=== PATIENT | female | born 1985 | race Caucasian/White ===

== ENCOUNTER 2016-12-03 16:53 | Emergency (ER) | payer BC ==
--- NOTE | 2016-12-03 17:34 | EDDOCDS ---
Nurse's Notes [facility] Name: Annabella Magallanes Age: 31 yrs Sex: Female : 1985 Arrival Date: 12/03/2016 Time: 16:53 Bed I6 / 28 Private MD: Diagnosis: Chest pain, unspecified Presentation: 12/03 17:01 Presenting complaint: Patient states: ache in center of chest and hypertension since [facility] 1200. denies SOB, or sweats. Aspirin was not taken prior to arrival. Adult Sepsis Screening: The patient does not have new or worsening altered mentation. Patient's respiratory rate is less than 22. Systolic blood pressure is greater than 100. Patient has a qSOFA score of 0- Negative Sepsis Screen. Suicide/Homicide risk assessment- the patient denies having any suicidal and/or homicidal ideations and does not present with any other emotional, behavioral or mental health complaints. 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 Transition of care: patient was not received from another setting of care. 17:01 Acuity: ANTOINE Level 3 [facility] 17:01 Method Of Arrival: Walkin/Carried/Asstd [facility] Triage Assessment: 17:05 General: Appears in no apparent distress, Behavior is appropriate for age. Pain: [facility] Location: mid-sternal area Pain currently is 2 out of 10 on a pain scale. Pt Declines HIV testing. Neurological: Level of Consciousness is awake, alert, Oriented to person, place, time. Cardiovascular: Capillary refill < 3 seconds in bilateral fingers Chest pain is described as Pain is 2 out of 10 on a pain scale. quality is pressure, radiates Does not radiate. episodes are continuous began 1200 today. Respiratory: Airway is patent Respiratory effort is even, unlabored. Derm: Skin is pink, warm & dry. 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 Ventolin HFA 90 mcg/actuation Nebulizer HFAA 2 puffs every 4 hours as needed (Last dose: Unknown) - PMHx: Asthma; - PSHx: Cholecystectomy; - Social history: Smoking status: Patient uses tobacco products, light tobacco smoker. No barriers to communication noted, The patient speaks fluent Macedonian. - Family history: Not pertinent. - : The pt / caregiver states he / she is not on anticoagulants. Home medication list is obtained from the patient. - Exposure Risk Screening:: None identified. Screenin:31 Screening information is obtained from the patient. Fall risk: No risks identified. dls Assistance ADL's: requires no assistance with activities of daily living. Abuse/DV Screen: The patient / caregiver reports he/she is: not in a situation that causes fear, pain or injury. Nutritional screening: No deficits noted. Advance Directives: Currently, there is no health care proxy. There is no active DNR order. There is no living will. There is no Power of Project Analyst. home support is adequate. Assessment: 17:30 General: Appears in no apparent distress, obese, well developed, well nourished, dls Behavior is cooperative. Neurological: No deficits noted. EENT: No deficits noted. Cardiovascular: Rhythm is sinus rhythm No ectopy. Respiratory: No deficits noted. GI: No deficits noted. : No deficits noted. Derm: No deficits noted. Musculoskeletal: No deficits noted. Vital Signs: 16:55 BP 163 / 93; Pulse 97; Resp 16; Temp 96.7(O); Pulse Ox 99% on R/A; Weight 127.01 kg lr2 (R); Height 5 ft. 4 in. (162.56 cm) (R); Pain 2/10; 17:05 BP 144 / 96 RA Sitting (man/lg); kpj 17:29 BP 124 / 82; Pulse 93; Resp 20; Temp 97.4; Pulse Ox 95% on R/A; dls 16:55 Body Mass Index 48.06 (127.01 kg, 162.56 cm) lr2 Vitals: 16:53 RN notified that patient meets Red Flag criteria. lr2 16:55 Log In Time: December 03, 2016 at 16:53. lr2 ED Course: 16:55 Patient visited by Radha Johnston. lr2 16:55 Patient moved to Waiting lr2 16:57 Patient moved to Pre RCE lr2 17:04 Triage Initiated kpj 17:10 EKG done. (by ED staff). Reviewed by Hamlet Pulido MD. kpj 17:13 Patient moved to I [facility] 17:18 [facility]ik Graham [facility] 17:19 Malick Calzada MD is Attending Physician. cc10 17:19 Patient visited by Karthik Graham PA-C. cc10 17:19 Patient visited by Karthik Graham PA-C. cc10 17:31 The patient / caregiver is instructed regarding the plan of care and ED course. Cardiac dls monitoring not applicable on this patient. Property :Personal belongings accompany Pt. 17:31 No IV's were initiated during this patient's visit. No procedures done that require dls assistance. Order Results: There are currently no results for this order. Outcome: 17:24 Discharge ordered by Provider. cc10 17:33 Patient left the ED. dls Signatures: Keyla Oliveira RN RN Marissa Rangel RN RN dls Coniski, Colin, PA-C PA-C ccRadha Rodriguez lr2 MTDD
--- NOTE | 2016-12-03 17:34 | EDDOCDS ---
Physician Documentation [facility] Name: Annabella Magallanes Age: 31 yrs Sex: Female : 1985 Arrival Date: 12/03/2016 Time: 16:53 Bed I6 / 28 Private MD: Disposition: 12/03/16 17:24 Discharged to Home/Self Care. Impression: Chest pain, unspecified. - Condition is Stable. - Discharge Instructions: Nonspecific Chest Pain. - Medication Reconciliation, Work Release Form - 1 day form. - Follow up: Private Physician; When: Call to arrange an appointment; Reason: Wound/Symptom Recheck, Recheck today's complaints, Worsening of conditions, Continuance of care. - Problem is an acute exacerbation. - Symptoms have improved. Historical: - Allergies: Morphine (Unknown); PENICILLINS (Rash); - Home Meds: 1. Ventolin HFA 90 mcg/actuation Nebulizer HFAA 2 puffs every 4 hours as needed (Last dose: Unknown) - PMHx: Asthma; - PSHx: Cholecystectomy; - Social history: Smoking status: Patient uses tobacco products, light tobacco smoker. No barriers to communication noted, The patient speaks fluent Surinamese. - Family history: Not pertinent. - : The pt / caregiver states he / she is not on anticoagulants. Home medication list is obtained from the patient. - Exposure Risk Screening:: None identified. 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 4 in. (162.56 cm) (R); Pain 2/10; 17:05 BP 144 / 96 RA Sitting (man/lg); kpj 17:29 BP 124 / 82; Pulse 93; Resp 20; Temp 97.4; Pulse Ox 95% on R/A; dls 16:55 Body Mass Index 48.06 (127.01 kg, 162.56 cm) lr2 MDM: 17:01 ECG WITH READING ER PHYS+CARDIAG ordered. EDMS 17:31 Financial registration complete. gjb Signatures: Dispatcher [employer] EDMS Keyla Oliveira, RN RN kpj Marissa West RN RN dls Karthik Graham, PA-C PA-C cc10 Magali Lino MTDD
--- NOTE | 2016-12-05 09:58 | ECGEPIP ---
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
--- NOTE | 2016-12-05 18:33 | EDDOCDS ---
Physician Documentation [facility] Name: Annabella Magallanes Age: 31 yrs Sex: Female : 1985 Arrival Date: 12/03/2016 Time: 16:53 Bed I6 / 28 Private MD: Disposition: 12/03/16 17:24 Discharged to Home/Self Care. Impression: Chest pain, unspecified. - Condition is Stable. - Discharge Instructions: Nonspecific Chest Pain. - Medication Reconciliation, Work Release Form - 1 day form. - Follow up: Private Physician; When: Call to arrange an appointment; Reason: Wound/Symptom Recheck, Recheck today's complaints, Worsening of conditions, Continuance of care. - Problem is an acute exacerbation. - Symptoms have improved. Historical: - Allergies: Morphine (Unknown); PENICILLINS (Rash); - Home Meds: 1. Ventolin HFA 90 mcg/actuation Nebulizer HFAA 2 puffs every 4 hours as needed (Last dose: Unknown) - PMHx: Asthma; - PSHx: Cholecystectomy; - Social history: Smoking status: Patient uses tobacco products, light tobacco smoker. No barriers to communication noted, The patient speaks fluent Romanian. - Family history: Not pertinent. - : The pt / caregiver states he / she is not on anticoagulants. Home medication list is obtained from the patient. - Exposure Risk Screening:: None identified. 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 4 in. (162.56 cm) (R); Pain 2/10; 17:05 BP 144 / 96 RA Sitting (man/lg); kpj 17:29 BP 124 / 82; Pulse 93; Resp 20; Temp 97.4; Pulse Ox 95% on R/A; dls 16:55 Body Mass Index 48.06 (127.01 kg, 162.56 cm) lr2 MDM: 17:01 ECG WITH READING ER PHYS+CARDIAG ordered. EDMS 17:31 Financial registration complete. tammy 18:06 [facility] Payment Agreement was scanned into MED[employer] and attached to record. tammy Signatures: Dispatcher [employer] Keyla Verdugo RN RN kpj Scott, Debra, RN RN dls Coniski, Colin, PA-C PA-C cc10 Beck, Gabriela gjb The chart was reviewed and I authenticate all verbal orders and agree with the evaluation and treatment provided.Attachments: 18:06 [facility] Payment Agreement tammy Chart Complete MTDD
--- NOTE | 2016-12-05 18:33 | EDDOCDS ---
Nurse's Notes [facility] Name: Reba Magallanes Age: 31 yrs Sex: Female : 1985 Arrival Date: 12/03/2016 Time: 16:53 Bed I6 / 28 Private MD: Diagnosis: Chest pain, unspecified Presentation: 12/03 17:01 Presenting complaint: Patient states: ache in center of chest and hypertension since [facility] 1200. denies SOB, or sweats. Aspirin was not taken prior to arrival. Adult Sepsis Screening: The patient does not have new or worsening altered mentation. Patient's respiratory rate is less than 22. Systolic blood pressure is greater than 100. Patient has a qSOFA score of 0- Negative Sepsis Screen. Suicide/Homicide risk assessment- the patient denies having any suicidal and/or homicidal ideations and does not present with any other emotional, behavioral or mental health complaints. 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 Transition of care: patient was not received from another setting of care. 17:01 Acuity: ANTOINE Level 3 [facility] 17:01 Method Of Arrival: Walkin/Carried/Asstd [facility] Triage Assessment: 17:05 General: Appears in no apparent distress, Behavior is appropriate for age. Pain: [facility] Location: mid-sternal area Pain currently is 2 out of 10 on a pain scale. Pt Declines HIV testing. Neurological: Level of Consciousness is awake, alert, Oriented to person, place, time. Cardiovascular: Capillary refill < 3 seconds in bilateral fingers Chest pain is described as Pain is 2 out of 10 on a pain scale. quality is pressure, radiates Does not radiate. episodes are continuous began 1200 today. Respiratory: Airway is patent Respiratory effort is even, unlabored. Derm: Skin is pink, warm & dry. 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 Ventolin HFA 90 mcg/actuation Nebulizer HFAA 2 puffs every 4 hours as needed (Last dose: Unknown) - PMHx: Asthma; - PSHx: Cholecystectomy; - Social history: Smoking status: Patient uses tobacco products, light tobacco smoker. No barriers to communication noted, The patient speaks fluent Czech. - Family history: Not pertinent. - : The pt / caregiver states he / she is not on anticoagulants. Home medication list is obtained from the patient. - Exposure Risk Screening:: None identified. Screenin:31 Screening information is obtained from the patient. Fall risk: No risks identified. dls Assistance ADL's: requires no assistance with activities of daily living. Abuse/DV Screen: The patient / caregiver reports he/she is: not in a situation that causes fear, pain or injury. Nutritional screening: No deficits noted. Advance Directives: Currently, there is no health care proxy. There is no active DNR order. There is no living will. There is no Power of Admission Nurse. home support is adequate. Assessment: 17:30 General: Appears in no apparent distress, obese, well developed, well nourished, dls Behavior is cooperative. Neurological: No deficits noted. EENT: No deficits noted. Cardiovascular: Rhythm is sinus rhythm No ectopy. Respiratory: No deficits noted. GI: No deficits noted. : No deficits noted. Derm: No deficits noted. Musculoskeletal: No deficits noted. Vital Signs: 16:55 BP 163 / 93; Pulse 97; Resp 16; Temp 96.7(O); Pulse Ox 99% on R/A; Weight 127.01 kg lr2 (R); Height 5 ft. 4 in. (162.56 cm) (R); Pain 2/10; 17:05 BP 144 / 96 RA Sitting (man/lg); kpj 17:29 BP 124 / 82; Pulse 93; Resp 20; Temp 97.4; Pulse Ox 95% on R/A; dls 16:55 Body Mass Index 48.06 (127.01 kg, 162.56 cm) lr2 Vitals: 16:53 RN notified that patient meets Red Flag criteria. lr2 16:55 Log In Time: December 03, 2016 at 16:53. lr2 ED Course: 16:55 Patient visited by Radha Johnston. lr2 16:55 Patient moved to Waiting lr2 16:57 Patient moved to Pre RCE lr2 17:04 Triage Initiated kpj 17:10 EKG done. (by ED staff). Reviewed by Hamlet Pulido MD. kpj 17:13 Patient moved to I [facility] 17:18 Karthik Graham [facility]C [facility] 17:19 Willam Calzada MD is Attending Physician. cc10 17:19 Patient visited by Karthik Graham PA-C. cc10 17:19 Patient visited by Karthik Graham PA-C. cc10 17:31 The patient / caregiver is instructed regarding the plan of care and ED course. Cardiac dls monitoring not applicable on this patient. Property :Personal belongings accompany Pt. 17:31 No IV's were initiated during this patient's visit. No procedures done that require dls assistance. 18:06 [facility] Payment Agreement was scanned into Dials and attached to record. gjb 12/05 10:05 EKG-ADULT Returned. 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 cc10 17:33 Patient left the ED. dls Signatures: Dispatcher [employer] EDNM Keyla Oliveira RN RN kpj Scott, Debra, RN RN dls Coniski, Colin, PA-C PA-C cc Magali Lino Laura lr2 Chart Complete MTDD
--- NOTE | 2016-12-05 18:33 | EDDOCDS ---
Physician Documentation [facility] Name: Annabella Magallanes Age: 31 yrs Sex: Female : 1985 Arrival Date: 12/03/2016 Time: 16:53 Bed I6 / 28 Private MD: Disposition: 12/03/16 17:24 Discharged to Home/Self Care. Impression: Chest pain, unspecified. - Condition is Stable. - Discharge Instructions: Nonspecific Chest Pain. - Medication Reconciliation, Work Release Form - 1 day form. - Follow up: Private Physician; When: Call to arrange an appointment; Reason: Wound/Symptom Recheck, Recheck today's complaints, Worsening of conditions, Continuance of care. - Problem is an acute exacerbation. - Symptoms have improved. Historical: - Allergies: Morphine (Unknown); PENICILLINS (Rash); - Home Meds: 1. Ventolin HFA 90 mcg/actuation Nebulizer HFAA 2 puffs every 4 hours as needed (Last dose: Unknown) - PMHx: Asthma; - PSHx: Cholecystectomy; - Social history: Smoking status: Patient uses tobacco products, light tobacco smoker. No barriers to communication noted, The patient speaks fluent Taiwanese. - Family history: Not pertinent. - : The pt / caregiver states he / she is not on anticoagulants. Home medication list is obtained from the patient. - Exposure Risk Screening:: None identified. 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 4 in. (162.56 cm) (R); Pain 2/10; 17:05 BP 144 / 96 RA Sitting (man/lg); kpj 17:29 BP 124 / 82; Pulse 93; Resp 20; Temp 97.4; Pulse Ox 95% on R/A; dls 16:55 Body Mass Index 48.06 (127.01 kg, 162.56 cm) lr2 MDM: 17:01 ECG WITH READING ER PHYS+CARDIAG ordered. EDMS 17:31 Financial registration complete. tammy 18:06 [facility] Payment Agreement was scanned into MEDHOST and attached to record. tammy Signatures: Dispatcher [employer] Keyla Verdugo RN RN kpj Scott, Debra, RN RN dls Coniski, Colin, PA-C PA-C cc10 Beck, Gabriela gjb The chart was reviewed and I authenticate all verbal orders and agree with the evaluation and treatment provided.Attachments: 18:06 [facility] Payment Agreement tammy Chart Complete MTDD
== END 2016-12-03 17:33 | disposition home or self-care (01) ==
LOC: M ED 16:53
DX: R07.89 Other chest pain (principal); J45.909 Unspecified asthma, uncomplicated; F17.210 Nicotine dependence, cigarettes, uncomplicated; Z88.0 Allergy status to penicillin; Z88.5 Allergy status to narcotic agent

== ENCOUNTER → 2016-12-31 | Outpatient (REF) | payer BC | LOC: M LAB REF 17:14 | PROVIDERS: ATTEND Physician Assistant Medical | DX: N39.0 Urinary tract infection, site not specified (principal) ==

== ENCOUNTER → 2017-04-30 | Outpatient (CLI) | payer BC ==
[2017-04-30 17:59] LABS: ANION GAP 6 MEQ/L (8-16); BLOOD UREA NITROGEN 12 MG/DL (7-18); CARBON DIOXIDE LEVEL 28 MEQ/L (21-32); CHLORIDE LEVEL 106 MEQ/L (98-107); CREATININE FOR GFR 0.74 MG/DL (0.55-1.02); GLOMERULAR FILTRATION RATE > 60.0 (>60); GLUCOSE, FASTING 84 MG/DL (70-105); POTASSIUM SERUM 4.4 MEQ/L (3.5-5.1); SODIUM LEVEL 140 MEQ/L (136-145)
== END ==
LOC: M WUC 12:12
PROVIDERS: ATTEND Physician Assistant
DX: R35.0 Frequency of micturition (principal)

== ENCOUNTER → 2018-02-13 | Outpatient (CLI) | payer BC | LOC: M RAD 15:08 | DX: R22.1 Localized swelling, mass and lump, neck (principal) | CPT/HCPCS: 76536 ==

== ENCOUNTER → 2021-09-12 | Outpatient (REF) | payer BC ==
[2021-09-12 19:53] LABS: APPEARANCE, URINE CLOUDY (CLEAR); BACTERIA, URINE AUTO NEGATIVE (NEGATIVE); BILIRUBIN, URINE AUTO NEGATIVE (NEGATIVE); BLOOD, URINE BLOOD NEGATIVE (NEGATIVE); COLOR, URINE YELLOW (YELLOW); GLUCOSE, URINE (UA) AUTO NEGATIVE (NEGATIVE); KETONE, URINE AUTO TRACE mg/dL (NEGATIVE); LEUKOCYTE ESTERASE, URINE AUTO NEGATIVE (NEGATIVE); MUCUS, URINE SMALL (NEGATIVE); NITRITE, URINE AUTO NEGATIVE (NEGATIVE); PROTEIN, URINE AUTO NEGATIVE (NEGATIVE); RBC, URINE AUTO 2 /HPF (0-3); SPECIFIC GRAVITY URINE AUTO 1.024 (1.002-1.035); SQUAMOUS EPITHELIAL CELL UR AU 8 /HPF (0-6); WBC, URINE AUTO 2 /HPF (0-3)
== END ==
LOC: M LAB REF 19:32
PROVIDERS: ATTEND Physician Assistant Medical
DX: R30.0 Dysuria (principal)

== ENCOUNTER → 2021-09-14 | Outpatient (CLI) | payer BC ==
[2021-09-14 16:18] LABS: BASO # 0.1 10^3/uL (0.0-0.2); BASO % 0.7 % (0.0-1.0); EOS # 0.2 10^3/uL (0.0-0.5); EOS % 2.1 % (0.0-3.0); HEMOGLOBIN 14.9 g/dl (12.0-15.5); LYMPH # 3.5 10^3/uL (1.5-5.0); LYMPH % 35.6 % (24.0-44.0); MEAN CORPUSCULAR HEMOGLOBIN 30.8 pg (27.0-33.0); MEAN CORPUSCULAR HGB CONC 32.4 g/dl (32.0-36.5); MEAN CORPUSCULAR VOLUME 95.2 fl (80.0-96.0); MONO # 0.7 10^3/uL (0.0-0.8); MONO % 7.1 % (2.0-8.0); NEUTROPHILS # 5.2 10^3/uL (1.5-8.5); NEUTROPHILS % 53.3 % (36.0-66.0); PLATELET COUNT, AUTOMATED 377 10^3/uL (150-450); RED BLOOD COUNT 4.83 10^6/uL (4.00-5.40); WHITE BLOOD COUNT 9.8 10^3/uL (4.0-10.0)
[2021-09-14 16:29] LABS: HEMOGLOBIN A1c 6.6 %
[2021-09-14 16:35] LABS: ALBUMIN 3.6 GM/DL (3.2-5.2); ALT/SGPT 44 U/L (12-78); BILIRUBIN,TOTAL 0.3 MG/DL (0.2-1.0); BLOOD UREA NITROGEN 13 MG/DL (7-18); CALCIUM LEVEL 9.7 MG/DL (8.5-10.1); CARBON DIOXIDE LEVEL 30 MEQ/L (21-32); CHLORIDE LEVEL 104 MEQ/L (98-107); CHOLESTEROL LEVEL 248 MG/DL (<200); CHOLESTEROL RISK RATIO 8.266 (<5); CREATININE FOR GFR 0.71 MG/DL (0.55-1.30); GLOMERULAR FILTRATION RATE > 60.0 (>60); GLUCOSE, FASTING 96 MG/DL (70-100); HDL CHOLESTEROL 30 MG/DL (>40); NON-HDL-C 218 MG/DL; POTASSIUM SERUM 4.8 MEQ/L (3.5-5.1); SODIUM LEVEL 139 MEQ/L (136-145); TOTAL PROTEIN 7.3 GM/DL (6.4-8.2); TRIGLYCERIDES LEVEL 452 MG/DL (<150)
== END ==
LOC: M WUC 11:14
DX: E11.9 Type 2 diabetes mellitus without complications (principal)

== ENCOUNTER → 2022-07-13 | Outpatient (REF) | payer BC ==
[2022-07-13 22:43] LABS: APPEARANCE, URINE MANUAL HAZY (CLEAR); COLOR, URINE MANUAL YELLOW (YELLOW); PROTEIN, URINE MANUAL NEGATIVE (NEGATIVE); SPECIFIC GRAVITY,URINE MANUAL 1.015 (1.002-1.035)
[2022-07-13 22:44] LABS: BILIRUBIN, URINE MANUAL NEGATIVE (NEGATIVE); BLOOD URINE MANUAL POSITIVE (NEGATIVE); GLUCOSE, URINE (UA) MANUAL 4+(1000 MG/DL) mg/dL (NEGATIVE); KETONE, URINE MANUAL 1+ mg/dL (NEGATIVE); LEUKOCYTE ESTERASE, URINE MAN POSITIVE (NEGATIVE); NITRITE, URINE MANUAL NEGATIVE (NEGATIVE); UROBILINOGEN, URINE MANUAL NORMAL (NORMAL)
[2022-07-13 22:57] LABS: SQUAMOUS EPITHELIAL CELL URINE SMALL AMOUNT /hpf (SMALL AMT); WBC, URINE 15-20 /hpf (0-3)
[2022-07-13 22:58] LABS: AMORPHOUS SEDIMENT, URINE SMALL AMOUNT (NEGATIVE); BACTERIA, URINE SMALL AMOUNT; HYALINE CAST, URINE NONE SEEN /lpf (0-1)
== END ==
LOC: M LAB REF 22:03
PROVIDERS: ATTEND Physician Assistant
DX: N39.0 Urinary tract infection, site not specified (principal)

== ENCOUNTER → 2022-10-29 | Outpatient (CLI) | payer BC | LOC: M WUC 08:06 | PROVIDERS: ATTEND Student in an Organized Health Care Education/Training Program | DX: E11.9 Type 2 diabetes mellitus without complications (principal) ==

== ENCOUNTER → 2023-02-04 | Outpatient (CLI) | payer BC ==
[2023-02-04 10:33] LABS: HEMOGLOBIN A1c 4.8 % (4.0-6.0)
== END ==
LOC: M WUC 08:00
PROVIDERS: ATTEND Student in an Organized Health Care Education/Training Program
DX: E11.9 Type 2 diabetes mellitus without complications (principal)

== ENCOUNTER → 2023-02-22 | Outpatient (CLI) | payer BC | LOC: M RAD 07:50 | PROVIDERS: ATTEND Student in an Organized Health Care Education/Training Program | DX: M54.50 Low back pain, unspecified (principal) ==

== ENCOUNTER → 2023-08-02 | Outpatient (CLI) | payer BC ==
[2023-08-02 13:06] LABS: BASO # 0.1 10^3/uL (0.0-0.2); BASO % 0.7 % (0.0-1.0); EOS # 0.2 10^3/uL (0.0-0.5); EOS % 1.6 % (0.0-3.0); HEMATOCRIT 41.4 % (36.0-47.0); HEMOGLOBIN 13.8 g/dl (12.0-15.5); LYMPH # 3.4 10^3/uL (1.5-5.0); LYMPH % 34.3 % (24.0-44.0); MEAN CORPUSCULAR HEMOGLOBIN 31.3 pg (27.0-33.0); MEAN CORPUSCULAR HGB CONC 33.3 g/dl (32.0-36.5); MEAN CORPUSCULAR VOLUME 93.9 fl (80.0-96.0); MONO # 0.7 10^3/uL (0.0-0.8); MONO % 6.8 % (2.0-8.0); NEUTROPHILS # 5.5 10^3/uL (1.5-8.5); NEUTROPHILS % 56.1 % (36.0-66.0); PLATELET COUNT, AUTOMATED 358 10^3/uL (150-450); RED BLOOD COUNT 4.41 10^6/uL (4.00-5.40); WHITE BLOOD COUNT 9.8 10^3/uL (4.0-10.0)
[2023-08-02 13:23] LABS: HEMOGLOBIN A1c 4.6 % (4.0-6.0)
[2023-08-02 13:25] LABS: CREATININE, URINE 122.1 MG/DL; MAU/CREAT RATIO 4.9 MCG/MG (0.0-30.0)
[2023-08-02 14:18] LABS: ALBUMIN 3.8 G/DL (3.2-5.2); ALKALINE PHOSPHATASE 80 U/L (46-116); ALT/SGPT 21 U/L (7.0-40); AST/SGOT 16 U/L (<34); BILIRUBIN,TOTAL 0.5 MG/DL (0.3-1.2); BLOOD UREA NITROGEN 18 MG/DL (9-23); CALCIUM LEVEL 8.9 MG/DL (8.5-10.1); CARBON DIOXIDE LEVEL 28 MMOL/L (20-31); CHLORIDE LEVEL 103 MMOL/L (98-107); CHOLESTEROL LEVEL 204 MG/DL (<200); CHOLESTEROL RISK RATIO 6.18 (<5); CREATININE FOR GFR 0.58 MG/DL (0.55-1.30); FOLATE 22.41 NG/ML (>5.4); FREE T4 1.21 NG/DL (0.89-1.76); GLOMERULAR FILTRATION RATE > 60.0 (>60); GLUCOSE, FASTING 91 MG/DL (60-100); MAGNESIUM LEVEL 1.9 MG/DL (1.8-2.4); POTASSIUM SERUM 3.9 MMOL/L (3.5-5.1); SODIUM LEVEL 138 MMOL/L (136-145); THYROID STIMULATING HORMONE 1.795 uIU/ML (0.55-4.78); TOTAL 25(OH) VITAMIN D 16.4 NG/ML (20.0-100.0); TRIGLYCERIDES LEVEL 220 MG/DL (<150); VITAMIN B12 LEVEL 342 PG/ML (211-911)
[2023-08-06 15:07] LABS: HOMOCYST(E)INE SERUM 11.3 umol/L (0.0-14.5); Methylmalonic Acid 337 nmol/L (0-378)
== END ==
LOC: M WUC 10:31
PROVIDERS: ATTEND Physician Assistant
DX: E11.9 Type 2 diabetes mellitus without complications (principal); R20.2 Paresthesia of skin

== ENCOUNTER → 2023-11-07 | Outpatient (REF) | payer BC ==
[2023-11-07 14:37] LABS: CHOLESTEROL RISK RATIO 4.75 (<5); HDL CHOLESTEROL 38.1 MG/DL (>40); LDL CHOLESTEROL 104.7 MG/DL (<100); NON-HDL-C 142.9 MG/DL; TOTAL 25(OH) VITAMIN D 50.6 NG/ML (20.0-100.0)
== END ==
LOC: M LABWUC 12:54
PROVIDERS: ATTEND Physician Assistant
DX: E78.2 Mixed hyperlipidemia (principal)

== ENCOUNTER → 2024-03-03 | Outpatient (CLI) | payer BC ==
[2024-03-03 11:19] LABS: HEMOGLOBIN A1c 4.9 % (4.0-6.0)
[2024-03-03 11:38] LABS: ALBUMIN 3.5 G/DL (3.2-5.2); ALKALINE PHOSPHATASE 61 U/L (46-116); ALT/SGPT 19 U/L (7.0-40); AST/SGOT 13 U/L (<34); BILIRUBIN,TOTAL 0.3 MG/DL (0.3-1.2); BLOOD UREA NITROGEN 16 MG/DL (9-23); CALCIUM LEVEL 8.9 MG/DL (8.5-10.1); CARBON DIOXIDE LEVEL 27 MMOL/L (20-31); CHLORIDE LEVEL 110 MMOL/L (98-107); CHOLESTEROL LEVEL 154 MG/DL (<200); CHOLESTEROL RISK RATIO 4.38 (<5); CREATININE FOR GFR 0.75 MG/DL (0.55-1.30); GLOMERULAR FILTRATION RATE > 60.0 (>58); GLUCOSE, FASTING 90 MG/DL (60-100); HDL CHOLESTEROL 35.1 MG/DL (>40); LDL CHOLESTEROL 78.3 MG/DL (<100); NON-HDL-C 118.9 MG/DL; POTASSIUM SERUM 4.6 MMOL/L (3.5-5.1); SODIUM LEVEL 141 MMOL/L (136-145); TOTAL PROTEIN 6.3 G/DL (5.7-8.2); TRIGLYCERIDES LEVEL 203 MG/DL (<150)
== END ==
LOC: M WUC 08:17
PROVIDERS: ATTEND Physician Assistant
DX: E11.9 Type 2 diabetes mellitus without complications (principal)

== ENCOUNTER → 2024-05-15 | Outpatient (REF) | payer BC | LOC: M SFHCLERA 16:30 | PROVIDERS: ATTEND Physician Assistant | DX: R30.0 Dysuria (principal) ==

== ENCOUNTER → 2024-05-29 | Outpatient (REF) | payer BC ==
[2024-05-29 17:31] LABS: BASO # 0.1 10^3/uL (0.0-0.2); BASO % 0.9 % (0.0-1.0); EOS # 0.2 10^3/uL (0.0-0.5); EOS % 2.3 % (0.0-3.0); HEMATOCRIT 42.6 % (36.0-47.0); HEMOGLOBIN 14.2 g/dl (12.0-15.5); LYMPH # 2.9 10^3/uL (1.5-5.0); MEAN CORPUSCULAR HEMOGLOBIN 30.9 pg (27.0-33.0); MEAN CORPUSCULAR HGB CONC 33.3 g/dl (32.0-36.5); MEAN CORPUSCULAR VOLUME 92.8 fl (80.0-96.0); MONO # 0.7 10^3/uL (0.0-0.8); MONO % 8.4 % (2.0-8.0); NEUTROPHILS # 4.2 10^3/uL (1.5-8.5); NEUTROPHILS % 52.2 % (36.0-66.0); PLATELET COUNT, AUTOMATED 286 10^3/uL (150-450); RED BLOOD COUNT 4.59 10^6/uL (4.00-5.40); WHITE BLOOD COUNT 8.1 10^3/uL (4.0-10.0)
[2024-05-29 17:55] LABS: ALBUMIN 3.6 G/DL (3.2-5.2); ALKALINE PHOSPHATASE 83 U/L (46-116); ALT/SGPT 20 U/L (7.0-40); AST/SGOT 13 U/L (<34); BILIRUBIN,TOTAL 0.2 MG/DL (0.3-1.2); BLOOD UREA NITROGEN 14 MG/DL (9-23); CALCIUM LEVEL 9.2 MG/DL (8.5-10.1); CARBON DIOXIDE LEVEL 28 MMOL/L (20-31); CHLORIDE LEVEL 108 MMOL/L (98-107); CREATININE FOR GFR 0.64 MG/DL (0.55-1.30); GLOMERULAR FILTRATION RATE > 60.0 (>58); GLUCOSE, FASTING 82 MG/DL (60-100); POTASSIUM SERUM 4.8 MMOL/L (3.5-5.1); SODIUM LEVEL 140 MMOL/L (136-145); TOTAL PROTEIN 6.7 G/DL (5.7-8.2)
== END ==
LOC: M SFHCLERA 11:32
PROVIDERS: ATTEND Physician Assistant
DX: R10.9 Unspecified abdominal pain (principal)

== ENCOUNTER → 2024-10-03 | Outpatient (CLI) | payer BC ==
[2024-10-03 10:53] LABS: HEMATOCRIT 42.8 % (36.0-47.0); HEMOGLOBIN 14.5 g/dl (12.0-15.5); MEAN CORPUSCULAR HEMOGLOBIN 30.9 pg (27.0-33.0); MEAN CORPUSCULAR HGB CONC 33.9 g/dl (32.0-36.5); MEAN CORPUSCULAR VOLUME 91.3 fl (80.0-96.0); PLATELET COUNT, AUTOMATED 348 10^3/uL (150-450); RED BLOOD COUNT 4.69 10^6/uL (4.00-5.40); WHITE BLOOD COUNT 8.3 10^3/uL (4.0-10.0)
[2024-10-03 11:14] LABS: HEMOGLOBIN A1c 5.4 % (4.0-6.0)
[2024-10-03 11:25] LABS: ALBUMIN 3.6 G/DL (3.2-5.2); ALKALINE PHOSPHATASE 82 U/L (35-104); ALT/SGPT 19 U/L (7.0-40); AST/SGOT 13 U/L (<34); BILIRUBIN,TOTAL 0.3 MG/DL (0.3-1.2); BLOOD UREA NITROGEN 13 MG/DL (9-23); CALCIUM LEVEL 9.5 MG/DL (8.5-10.1); CARBON DIOXIDE LEVEL 29 MMOL/L (20-31); CHLORIDE LEVEL 105 MMOL/L (98-107); CHOLESTEROL LEVEL 192 MG/DL (<200); CHOLESTEROL RISK RATIO 5.47 (<5); CREATININE FOR GFR 0.69 MG/DL (0.55-1.30); GLOMERULAR FILTRATION RATE > 60.0 (>58); GLUCOSE, FASTING 96 MG/DL (60-100); HDL CHOLESTEROL 35.1 MG/DL (>40); LDL CHOLESTEROL 110.7 MG/DL (<100); NON-HDL-C 156.9 MG/DL; POTASSIUM SERUM 4.6 MMOL/L (3.5-5.1); SODIUM LEVEL 141 MMOL/L (136-145); TOTAL PROTEIN 7.2 G/DL (5.7-8.2); TRIGLYCERIDES LEVEL 231 MG/DL (<150)
[2024-10-03 11:32] LABS: THYROID STIMULATING HORMONE 1.681 uIU/ML (0.55-4.78); TOTAL 25(OH) VITAMIN D 64.4 NG/ML (20.0-100.0)
== END ==
LOC: M LAB 10:32
DX: F41.9 Anxiety disorder, unspecified (principal)

== ENCOUNTER → 2024-10-16 | Outpatient (CLI) | payer BC | LOC: M WUC 10:50 | DX: M25.711 Osteophyte, right shoulder (principal); M25.712 Osteophyte, left shoulder; M25.511 Pain in right shoulder; M25.512 Pain in left shoulder; G89.29 Other chronic pain ==

== ENCOUNTER → 2024-12-07 | Outpatient (CLI) | payer BC | LOC: M PLAIMG 09:10 | DX: M25.519 Pain in unspecified shoulder (principal) ==

== ENCOUNTER → 2025-01-07 | Outpatient (CLI) | payer BC ==
[2025-01-07 12:45] LABS: CHOLESTEROL RISK RATIO 4.72 (<5); HDL CHOLESTEROL 42.1 MG/DL (>40); LDL CHOLESTEROL 98.1 MG/DL (<100); NON-HDL-C 156.9 MG/DL
[2025-01-07 12:50] LABS: HEMOGLOBIN A1c 5.4 % (4.0-6.0)
== END ==
LOC: M WUC 08:09
DX: E78.2 Mixed hyperlipidemia (principal); E11.9 Type 2 diabetes mellitus without complications

== ENCOUNTER → 2025-02-02 | Outpatient (REF) | payer BC | LOC: M SFHCLERA 16:54 | DX: R10.9 Unspecified abdominal pain (principal) ==